=== PATIENT | female | born 1970 | race Caucasian/White ===

== ENCOUNTER 2020-09-15 00:56 | Emergency (ER) | payer SELFPAY ==
[~2020-09-15] VITALS: Ht 167.7 cm; Wt 87.1 kg
[2020-09-15] MEDS ORDERED: FAMOTIDINE 20MG/2ML IV (PEPCID) IV STA (01:04)
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
[2020-09-15] MEDS ORDERED: ANTACID SUSP 30 ML UDC (MYLANTA) PO ONE (01:15)
[2020-09-15] MEDS ORDERED: ASPIRIN 81 MG CHEW (CHILDREN'S ASA) PO ONE (01:15)
[2020-09-15] MEDS ORDERED: LIDOCAINE 2% VISCOUS 15 ML UDC PO ONE (01:15)
[2020-09-15 01:16] LABS: BASOPHILS % (AUTO) 0 % (0-10); EOSINOPHILS % (AUTO) 2 % (0-10); HEMATOCRIT 43 % (35-52); HEMOGLOBIN 15.1 G/DL (11.5-16.0); LYMPHOCYTES # (AUTO) 4.2 X 10^3 (1.0-4.0); LYMPHOCYTES % (AUTO) 30 % (12-44); MEAN CORPUSCULAR HEMOGLOBIN 32 PG (25-34); MEAN CORPUSCULAR HGB CONC 35 G/DL (32-36); MEAN CORPUSCULAR VOLUME 92 FL (80-99); MEAN PLATELET VOLUME 10.4 FL (7.4-10.4); MONOCYTES % (AUTO) 6 % (0-12); NEUTROPHILS # (AUTO) 8.5 X 10^3 (1.8-7.8); NEUTROPHILS % (AUTO) 61 % (42-75); PLATELET COUNT 332 10^3/uL (130-400)
[2020-09-15 01:17] LABS: BASOPHILS # (AUTO) 0.1 10^3/uL (0.0-0.1); EOSINOPHILS # (AUTO) 0.3 10^3/uL (0.0-0.3); MONOCYTES # (AUTO) 0.8 X 10^3 (0.0-1.0)
[2020-09-15 01:28] LABS: BAND NEUTROPHILS 1 %; EOSINOPHILS % (MANUAL) 2 %; LYMPHOCYTES % (MANUAL) 36 %; MONOCYTES % (MANUAL) 3 %; NEUTROPHILS % (MANUAL) 58 %
[2020-09-15 01:33] LABS: INR 0.9 (0.8-1.4); PROTHROMBIN TIME PATIENT 12.6 SEC (12.2-14.7)
[2020-09-15 01:35] LABS: ALANINE AMINOTRANSFERASE 21 U/L (0-55); ALKALINE PHOSPHATASE 112 U/L (40-136); BILIRUBIN,TOTAL < 0.2 MG/DL (0.1-1.0); BUN/CREATININE RATIO 14; CALCIUM 10.1 MG/DL (8.5-10.1); CARBON DIOXIDE 22 MMOL/L (21-32); CHLORIDE 99 MMOL/L (98-107); CREATININE SERUM 0.65 MG/DL (0.60-1.30); GFR ESTIMATED 98; GLUCOSE 137 MG/DL (70-105); POTASSIUM 3.5 MMOL/L (3.6-5.0); SODIUM 136 MMOL/L (135-145)
[2020-09-15 01:36] LABS: ALBUMIN 4.7 GM/DL (3.2-4.5); LIPASE 44 U/L (8-78)
[2020-09-15] MEDS ORDERED: KETOROLAC 30 MG/ML VIAL IVP STA (01:42)
[2020-09-15] MEDS ORDERED: morphine INJ 10 MG/ML 1ML (SYR OR VIAL) IVP ONE (02:15)
[2020-09-15] MEDS ORDERED: ORPHENADRINE 60 MG/2 ML (NORFLEX) AMP (ED ONLY) IV STA (03:01)
[2020-09-15 03:47] VITALS: BP 131/71
--- NOTE | 2020-09-15 04:54 | Diagnostic Imaging Report ---
INDICATION: Chest pain Frontal chest obtained at 0110 a.m. Heart and mediastinal silhouette are normal in appearance. The lungs are clear. There is no pneumothorax or pleural fluid collection. IMPRESSION: Negative chest. Dictated by: Dictated on workstation # [id number]
--- OUTSIDE RECORDS SUMMARY | 2020-09-18 17:18 | XMS REPORT | Clinical Summary ---
Author Author [facility] Address Unknown Phone Unavailable Care Team Providers Care Still Photographer Name Role Phone Josee Uriostegui MD PCP Jere Puentes PA-C Unavailable Italia Jeong [employer] Unavailable Tete Romano [employer] Unavailable Allergies Comments Active Allergy Reactions Severity Noted Date Amoxicillin Rash Low 08/13/2014 Codeine Other (See 08/13/2014 Comments) Erythromycin Base Rash Low 08/13/2014 Gentamicin Sulfate Rash Low 09/07/2012 Levofloxacin Rash Low 05/12/2016 Nitrofurantoin Nausea Only 05/14/2016 Penicillin V Rash Low 08/13/2014 Penicillins Rash Low 09/07/2012 Propoxyphene Rash Low 08/13/2014 Rofecoxib Rash Low 08/13/2014 Joint pain Statins Other (See 09/07/2012 Comments) Sulfa Antibiotics Diarrhea, 09/07/2012 Nausea And Vomiting Medications End Date Status Medication Sig Dispensed Refills Start Date Active ranitidine (ZANTAC) 150 Take 150 mg 0 MG tablet by mouth 2 nightly. Active polycarbophil (FIBERCON) Take 625 mg 0 07/16 625 MG tablet by mouth 2 daily. Take pill with plenty of water!! Active vitamin C (ASCORBIC ACID) Take 1 tablet 0 500 MG tablet by mouth daily. Active vitamin D, Take 1 tablet 0 cholecalciferol, 400 by mouth UNITS TABS daily. Active Cephalexin 500 MG Take 500 mg 14 each 0 05/15/19 1 TABSIndications: Urinary by mouth 2 7 tract infection, site (two) times unspecified daily. Active Problems Problem Noted Date Syncope Hypertension Smoker Immunizations Name Administration Dates Next Due MMR 10/05/1988 Pneumococcal 07/17/2011 Polysaccharide (23-valent) Td(adult) PFree,adsorbed 10/28/2015 Family History Medical History Relation Name Comments No Known Problems Brother No Known Problems Brother No Known Problems Daughter No Known Problems Daughter No Known Problems Father Heart disease Maternal Grandmother No Known Problems Mother No Known Problems Son No Known Problems Son Relation Name Status Comments Brother Alive Brother Alive Daughter Alive Daughter Alive Father Alive Maternal Grandmother Mother Alive Son Alive Son Alive Social History Date Tobacco Use Types Packs/Day Years Used Current Every Day Smoker Cigarettes 0.5 Smokeless Tobacco: Never Used Tobacco Cessation: Ready to Quit: No; Co unseling Given: Yes Sex Assigned at Date Recorded Not on file Last Filed Vital Signs Reading Time Taken Comments Vital Sign 150/80 05/12/2016 1:57 PM CDT Blood Pressure 64 05/12/2016 1:57 PM CDT Pulse 37.1 C (98.8 F) 05/12/2016 1:57 PM CDT Temperature 12 05/12/2016 1:57 PM CDT Respiratory Rate - - Oxygen Saturation - - Inhaled Oxygen Concentration 87 kg (191 lb 14.4 oz) 05/12/2016 1:57 PM CDT Weight 168.9 cm (5' 6.5") 05/12/2016 1:57 PM CDT Height 30.51 05/12/2016 1:57 PM CDT Body Mass Index Plan of Treatment Health Maintenance Due Date Last Done Comments COVID-19 Vaccine (1) 1984 Varicella Vaccines (1 of 11/02/1988 2 - 2-dose childhood series) Hepatitis C Screening 1990 DTaP,Tdap,and Td Vaccines 10/29/2015 10/28/2015 (1 - Tdap) Cervical Cancer Screening 02/15/2018 02/15/2015 Influenza Vaccine (#1) 2020 Pneumo-Vaccine: 65+Yrs (1 2037 07/17/2011 of 1 - PPSV23) MMR Vaccines-Adult Completed 10/05/1988 Pneumo-Vaccine: Peds (0-5 Aged Out 07/17/2011 No l onger eligible based on patient's age to Yrs) & At-Risk Patients complete this topic (6-64 Yrs) HIB Vaccines Aged Out No longer eligible based on patient's age to complete this topic IPV Vaccines Aged Out No longer eligible based on patient's age to complete this topic Meningococcal Vaccine Aged Out No longer eligib le based on patient's age to complete this topic Rotavirus Vaccines Aged Out No longer eligible based on patient's age to complete this topic Results Not on filefrom Last 3 Months Insurance Type Payer Benefit Subscriber ID Effective Phone Address Plan / Dates Group WORK COMP GENERIC WORK COMP [id number] 2015- [phone] [address] [place] [address] [employer] [facility] 19 [id number] 2019 [address] [place] [address] [facility] [id number] 2015-P [phone] [address] [facility] resent [id number] [facility] [place] [address] Advance Directives For more information, please contact: [phone] Patient Supervisor Hydrochloric Area Explanation Type Date Recorded Advance Directives and Living Will Power of Edger Machine Helper Care Teams Start Date End Date Still Photographer Relationship Specialty 05/12/16 Josee Uriostegui MD PCP - General Family [address] [place], [place] [id number] [email or web address] 05/12/16 Jere Puentes PA-C Family [address] [place], [place] [phone] 05/12/16 Italia Jeong, EVONNE Family Medicine 05/12/16 Tete Romano, [employer] Nurse [address] [place], [place] [phone] [email or web address]
== END 2020-09-15 03:47 | disposition home or self-care (01) ==
LOC: ER FS 01:02
DX: R07.9 Chest pain, unspecified (principal); I10 Essential (primary) hypertension; K21.9 Gastro-esophageal reflux disease without esophagitis; F17.210 Nicotine dependence, cigarettes, uncomplicated
CPT/HCPCS: 36415; 71045; 80053; 83690; 83735; 83874; 84484; 85007; 85027; 85379; 85610; 85730; 93005; 93041